=== PATIENT | female | born 1940 | race Caucasian/White ===

== ENCOUNTER 2016-04-06 | Outpatient (CLI) | END 2016-04-06 09:13 | disposition critical access hospital (66) | CPT/HCPCS: A0425; A0427 ==

== ENCOUNTER 2016-04-06 10:07 | Emergency (ER) | payer MEDICARE, OTHER ==
[2016-04-06] MEDS ORDERED: SODIUM CHLORIDE 0.9% 1,000 ML IV ONE (12:49)
[2016-04-06] MEDS ORDERED: ACETAMINOPHEN 325 MG TABLET PO STA (13:58)
[2016-04-06] MEDS ORDERED: ACETAMINOPHEN 325 MG TABLET PO ONE (13:58)
== END 2016-04-06 17:08 | disposition home or self-care (01) ==
DX: J10.1 Influenza due to other identified influenza virus with other respiratory manifestations (principal); E86.0 Dehydration; R55 Syncope and collapse; Z79.82 Long term (current) use of aspirin
CPT/HCPCS: 36415; 70450; 71020; 80053; 81003; 83690; 84484; 85025; 87275; 87276; 93005; 93010; 99284; A9270